=== PATIENT | male | born 1990 | race Caucasian/White ===

== ENCOUNTER 2020-05-02 19:30 | Emergency (ER) | payer OTHER, SELFPAY ==
[~2020-05-02] VITALS: Ht 182.9 cm; Wt 77.1 kg
[2020-05-02 19:32] VITALS: BP 125/89; Ht 182.9 cm; Wt 77.1 kg
== END 2020-05-02 20:46 | disposition home or self-care (01) ==
LOC: ED 19:30
DX: U07.1 COVID-19 (principal); F17.210 Nicotine dependence, cigarettes, uncomplicated
CPT/HCPCS: 99406; U0003